=== PATIENT | female | born 1955 | race Hispanic/Latino ===

== ENCOUNTER 2018-03-18 21:53 | Emergency (ER) | payer OTHER ==
[~2018-03-18] VITALS: Ht 149.9 cm; Wt 83.9 kg
[2018-03-18] MEDS ORDERED: HYDROCODONE/APAP 7.5MG-325MG 1 EA TAB PO STA (22:13)
--- NOTE | 2018-03-19 00:05 | Diagnostic Imaging Report ---
SHOULDER LEFT COMPLETE Comparison: None Clinical history: Left shoulder pain Findings: No fracture or dislocation. Mild acromioclavicular degenerative changes. Left chest wall clips. Impression: No acute bony abnormality Signed by: Dr Tami Venegas MD on 03/19/2018 12:01 AM
== END 2018-03-19 02:21 | disposition home or self-care (01) ==
LOC: ER 21:53
DX: S46.812A Strain of other muscles, fascia and tendons at shoulder and upper arm level, left arm, initial encounter (principal); X50.1XXA Overexertion from prolonged static or awkward postures, initial encounter; Y92.008 Other place in unspecified non-institutional (private) residence as the place of occurrence of the external cause
CPT/HCPCS: 99284

== ENCOUNTER 2020-06-08 05:40 | Emergency (ER) | payer BC, OTHER ==
[~2020-06-08] VITALS: Ht 149.9 cm; Wt 86.2 kg
[2020-06-08] MEDS ORDERED: HYDROCODONE/APAP 7.5MG-325MG 1 EA TAB PO PRN (06:00)
[2020-06-08 07:00] LABS: CLARITY,URINE CLEAR (CLEAR); COLOR,URINE YELLOW (YELLOW); KETONES,URINE NEGATIVE (NEGATIVE); LEUKOCYTE ESTERASE ,URINE NEGATIVE (NEGATIVE); NITRITE,URINE NEGATIVE (NEGATIVE); PROTEIN,URINE DIPSTICK NEGATIVE (NEGATIVE); URINE UROBILINOGEN 0.2 mg/dL (0.2 - 1)
[2020-06-08 07:02] LABS: RBC,URINE 0-5 /HPF (0-5); WBC,URINE (MAN) 0-5 /HPF (0-5)
[2020-06-08 07:03] LABS: BACTERIA,URINE RARE /HPF; EPITHELIAL CELLS,URINE MODERATE /LPF
[2020-06-08] MEDS ORDERED: TYLENOL # 31 EA PO (07:25)
== END 2020-06-08 07:35 | disposition home or self-care (01) ==
LOC: ER 06:00
DX: M54.41 Lumbago with sciatica, right side (principal); I10 Essential (primary) hypertension; E11.9 Type 2 diabetes mellitus without complications; E78.5 Hyperlipidemia, unspecified; Z85.3 Personal history of malignant neoplasm of breast
CPT/HCPCS: 72110; 81001; 87086; 99283